=== PATIENT | male | born 1985 | race American Indian/Alaskan Native ===

== ENCOUNTER 2017-11-18 02:25 | Emergency (ER) | payer SELFPAY ==
--- NOTE | 2017-11-18 04:21 | XRay Report ---
FINAL REPORT EXAM: XR CHEST ROUTINE 2V HISTORY: SOB/ URI TECHNIQUE: PA and lateral views of the chest were submitted. FINDINGS: The heart size and mediastinum appear normal. The lungs are clear. Pleural fluid is not seen. The skeletal structures appear well maintained IMPRESSION: Normal chest.
--- NOTE | 2017-11-18 04:25 | Emergency Department Report ---
- General Chief Complaint: Upper Respiratory Infection Stated Complaint: SOB Time Seen by Provider: 11/18/17 04:25 Source: patient Mode of arrival: Ambulatory Limitations: No Limitations - History of Present Illness Complaint: cough - Related Data Allergies Allergy/AdvReac Type Severity Reaction Status Date / Time No Known Allergies Allergy Unverified 11/18/17 03:22 ED Review of Systems ROS: Stated complaint: SOB Other details as noted in HPI ED Past Medical Hx - Past Medical History Previous Medical History?: Yes Hx HIV: Yes - Surgical History Past Surgical History?: No - Social History Smoking Status: Current Every Day Smoker Substance Use Type: Marijuana ED Physical Exam - General Limitations: No Limitations ED Course Vital Signs 11/18/17 03:16 Temperature 97.7 F Pulse Rate 84 Respiratory 18 Rate Blood Pressure 131/69 O2 Sat by Pulse 94 Oximetry Critical care attestation.: If time is entered above; I have spent that time in minutes in the direct care of this critically ill patient, excluding procedure time. ED Disposition Condition: Stable Referrals: PRIMARY CARE [Primary Care Provider] - 3-5 Days
[2017-11-18] MEDS ORDERED: PROVENTIL IH ONE ×2 (04:48→05:10)
[2017-11-18] MEDS ORDERED: DUONEB *Not for PRN Use IH ONE (04:48)
[2017-11-18] MEDS ORDERED: DELTASONE PO ONE (04:49)
--- NOTE | 2017-11-18 04:54 | Emergency Department Report ---
ED Asthma HPI - General Chief Complaint: Upper Respiratory Infection Stated Complaint: SOB Time Seen by Provider: 11/18/17 04:25 Source: patient Mode of arrival: Ambulatory Limitations: No Limitations - History of Present Illness Initial Comments: 31-year-old male past medical history HIV on HAART medicines presents with complaint of persistent wheezing since yesterday. Patient denies fevers chills nausea vomiting. Does state that he has slight nonproductive cough. States that he ran out of albuterol medicines and asthma medicines at home. No previous history of intubations. Patient states that he is a smoker. Patient awake alert and oriented 3 speaking full sentences. No audible wheezing or stridor. Does state that he feels slightly short of breath at rest. Denies any chest pain or pleuritic chest pain. Does not know last CD4 count or viral load. MD Complaint: wheezing Onset/Timin -: days(s) Asthma History: childhood onset Severity: moderate Treatments Prior to Arrival: inhaled bronchodilator - Related Data Previous Rx's Medication Instructions Recorded Last Taken Type ALBUTEROL NEB's [Proventil 0.083% 2.5 mg IH Q4H PRN #1 box 11/18/17 Unknown Rx NEBS] Albuterol Sulfate [Ventolin Hfa] 1 puff IH Q4H PRN #1 hfa.aer.ad 11/18/17 Unknown Rx Azithromycin [Zithromax Z-MATILDA] 250 mg PO QDAY #1 pack 11/18/17 Unknown Rx predniSONE [Deltasone] 40 mg PO QDAY #10 tab 11/18/17 Unknown Rx Allergies Allergy/AdvReac Type Severity Reaction Status Date / Time No Known Allergies Allergy Unverified 11/18/17 03:22 ED Review of Systems ROS: Stated complaint: SOB Other details as noted in HPI Constitutional: denies: chills, fever Eyes: denies: eye pain, eye discharge, vision change ENT: denies: ear pain, throat pain Respiratory: shortness of breath, wheezing. denies: cough Cardiovascular: denies: chest pain, palpitations Endocrine: no symptoms reported Gastrointestinal: denies: abdominal pain, nausea, diarrhea Genitourinary: denies: urgency, dysuria Musculoskeletal: denies: back pain, joint swelling, arthralgia Skin: denies: rash, lesions Neurological: denies: headache, weakness, paresthesias Psychiatric: denies: anxiety, depression Hematological/Lymphatic: denies: easy bleeding, easy bruising ED Past Medical Hx - Past Medical History Previous Medical History?: Yes Hx HIV: Yes - Surgical History Past Surgical History?: No - Social History Smoking Status: Current Every Day Smoker Substance Use Type: Marijuana - Medications Home Medications: Home Medications Medication Instructions Recorded Confirmed Last Taken Type ALBUTEROL NEB's [Proventil 0.083% 2.5 mg IH Q4H PRN #1 box 11/18/17 Unknown Rx NEBS] Albuterol Sulfate [Ventolin Hfa] 1 puff IH Q4H PRN #1 hfa.aer.ad 11/18/17 Unknown Rx Azithromycin [Zithromax Z-MATILDA] 250 mg PO QDAY #1 pack 11/18/17 Unknown Rx predniSONE [Deltasone] 40 mg PO QDAY #10 tab 11/18/17 Unknown Rx ED Physical Exam - General Limitations: No Limitations General appearance: alert, in no apparent distress - Head Head exam: Present: atraumatic, normocephalic - Eye Eye exam: Present: normal appearance, PERRL, EOMI - ENT ENT exam: Present: mucous membranes moist - Neck Neck exam: Present: normal inspection - Respiratory Respiratory exam: Present: wheezes (wheezing bilateral lung mendoza). Absent: respiratory distress - Cardiovascular Cardiovascular Exam: Present: regular rate, normal rhythm. Absent: systolic murmur, diastolic murmur, rubs, gallop - GI/Abdominal GI/Abdominal exam: Present: soft, normal bowel sounds - Rectal Rectal exam: Present: deferred - Extremities Exam Extremities exam: Present: normal inspection - Back Exam Back exam: Present: normal inspection - Neurological Exam Neurological exam: Present: alert, oriented X3 - Psychiatric Psychiatric exam: Present: normal affect, normal mood - Skin Skin exam: Present: warm, dry, intact, normal color. Absent: rash ED Course Vital Signs 11/18/17 03:16 Temperature 97.7 F Pulse Rate 84 Respiratory 18 Rate Blood Pressure 131/69 O2 Sat by Pulse 94 Oximetry ED Medical Decision Making - Medical Decision Making A/P: Asthma exacerbation, reactive airway disease 1-refill on albuterol nebs, albuterol inhaler 2-short course prednisone 3-normal vital signs, patient does not have any audible wheezing or stridor or retractions before discharge. 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 As patient does have a history of HIV with unknown viral load and cd4 will also treat empirically with course of azithromycin. No clear evidence of pneumonia on x- ray Critical care attestation.: If time is entered above; I have spent that time in minutes in the direct care of this critically ill patient, excluding procedure time. ED Disposition Clinical Impression: Wheezing Asthma Qualifiers: Asthma severity: mild Asthma persistence: intermittent Asthma complication type : with acute exacerbation Qualified Code(s): J45.21 - Mild intermittent asthma with (acute) exacerbation Reactive airway disease Qualifiers: Asthma severity: mild Asthma persistence: intermittent Asthma complication type : with acute exacerbation Qualified Code(s): J45.21 - Mild intermittent asthma with (acute) exacerbation Disposition: TO HOME OR SELFCARE Is pt being admited?: No Does the pt Need Aspirin: No Condition: Stable Instructions: Asthma (ED) Prescriptions: ALBUTEROL NEB's [Proventil 0.083% NEBS] 2.5 mg IH Q4H PRN #1 box PRN Reason: Wheezing Albuterol Sulfate [Ventolin Hfa] 1 puff IH Q4H PRN #1 hfa.aer.ad PRN Reason: Wheezing Azithromycin [Zithromax Z-MATILDA] 250 mg PO QDAY #1 pack predniSONE [Deltasone] 40 mg PO QDAY #10 tab Referrals: [facility] [Provider Group] - 3-5 Days [facility] [Outside] - 3-5 Days Forms: Work/School Release Form(ED) Time of Disposition: 04:51
[2017-11-18 06:20] VITALS: BP 130/70
== END 2017-11-18 06:20 | disposition home or self-care (01) ==
LOC: ED 02:25
DX: J45.21 Mild intermittent asthma with (acute) exacerbation (principal); F17.200 Nicotine dependence, unspecified, uncomplicated; F12.10 Cannabis abuse, uncomplicated
CPT/HCPCS: 71046; 94640; 99283; J7512

== ENCOUNTER 2017-11-19 01:17 | Emergency (ER) | payer SELFPAY ==
[2017-11-19 01:33] VITALS: BP 126/73
[2017-11-19] MEDS ORDERED: DUONEB *Not for PRN Use IH ONE ×2 (01:34→01:38)
== END 2017-11-19 06:50 | disposition left against medical advice (07) ==
LOC: ED 01:17
DX: R06.00 Dyspnea, unspecified (principal); R06.2 Wheezing; Z53.21 Procedure and treatment not carried out due to patient leaving prior to being seen by health care provider